=== PATIENT | male | born 1995 | race Caucasian/White ===

== ENCOUNTER 2022-03-04 23:38 | Emergency (ER) | payer BC, SELFPAY ==
--- NOTE | ~2022-03-04 | XR_ITS ---
EXAMINATION: XR chest 2V DATE: 03/05/2022 00:02 INDICATION: Chest pain. TECHNIQUE: Frontal and lateral views of the chest were obtained. COMPARISON: None. FINDINGS: The chest demonstrates clear lungs without pneumonia, pleural effusion, or pneumothorax. Th e heart size is normal. IMPRESSION: 1. No acute cardiopulmonary disease. Reviewed, dictated and finalized at location A.
--- NOTE | 2022-03-04 23:40 | ECG_ITS ---
Measurements Intervals [place] Rate: 101 P: 80 LA: 148 QRS: 61 QRSD: 85 T: 23 QT: 313 QTc: 407 Interpretive Statements SINUS TACHYCARDIA POSSIBLE LEFT ATRIAL ENLARGEMENT BORDERLINE ST-T WAVE ABNORMALITY- INFERIOR LEADS BORDERLINE ECG NO PREVIOUS ECG AVAILABLE FOR COMPARISON Electronically Signed On 03-05-2022 6:41:17 CDT by Hunter Pritchard D.O.
[2022-03-04 23:41] VITALS: BP 126/82; PULSE 97; RESP 16; TEMP 36.6; O2SAT 98
[2022-03-04 23:56] LABS: Basophils Absolute Auto 0.1 K/mm3 (0.0-0.1); Basophils Percent Auto 0.7 % (0.2-1.2); Eosinophils Absolute Auto 0.2 K/mm3 (0-0.3); Eosinophils Percent Auto 1.7 % (0-4.4); Immature Granulocyte Absolute 0.02 K/mm3 (0.00-0.031); Immature Granulocyte Percent A 0.2 % (0-0.5); Lymphocytes Absolute Auto 1.46 K/mm3 (0.9-3.2); Lymphocytes Percent Auto 16.1 % (18.3-44.2); Mean Corpuscular Hemoglobin 28.8 pg (26-34); Mean Corpuscular Volume 84.7 fl (80-100); Monocytes Absolute Auto 0.6 K/mm3 (0.1-0.6); Monocytes Percent Auto 6.5 % (2.6-8.5); Neutrophils Absolute Auto 6.8 K/mm3 (1.3-6.7); Neutrophils Percent Auto 74.8 % (45.5-73.1); Platelet Count Result 268 k/mm3 (150-375); Red Blood Count 5.55 M/mm3 (4.6-6.20); Red Cell Distribution Width 12.2 % (11.5-14.5); White Blood Count 9.1 K/mm3 (4.5-10.0)
[2022-03-05 00:08] LABS: Alanine Aminotransferase 23 U/L (6-50); Albumin Level 4.9 g/dL (3.5-5.1); Alkaline Phosphatase 50 U/L (38-126); Anion Gap 13 mmol/L (8-16); Aspartate Amino Transferase 26 U/L (17-59); Bilirubin,Total 0.6 mg/dL (0.2-1.3); Blood Urea Nitrogen 13 mg/dL (9-20); Calcium 9.4 mg/dL (8.4-10.2); Carbon Dioxide 25 mmol/L (22-30); Chloride 103 mmol/L (98-107); Estimated Glomerular Filt Rate > 60; Glucose 103 mg/dL (65-110); INR 1.1; Lipase 61 U/L (23-300); Partial Thromboplastin Time 27.6 SECONDS (22.3-36.8); Prothrombin Time 13.6 Seconds (11.1-14.7); Sodium 141 mmol/L (137-145)
[2022-03-05 00:19] LABS: Troponin I < 0.012 ng/mL (0.000-0.034)
--- NOTE | 2022-03-05 01:59 | ED.GENADULT ---
[facility] - General Adult General Chief complaint: Chest Pain Stated complaint: chest pain Time Seen by Provider: 03/05/22 00:38 History of Present Illness HPI narrative: Patient is a 26-year-old male who presents ER with chest pain. Began after he smokes marijuana. Tightness in his upper chest with tingling down his left arm. Reports family history of strokes and is concerned him. No expressive aphasia or slurred speech. No other focal deficit. Symptoms improved at this time. Reports in normal health otherwise. Review of Systems Review of Systems: All systems reviewed & are unremarkable except as noted in HPI and below Constitutional: Constitutional: Denies chills, Denies fatigue and Denies fever(s) ENT: Denies nasal congestion and Denies sore throat Cardiovascular: Cardiovascular: Reports chest pain, Denies rapid heart rate and Reports radiating jaw, neck or arm pain Respiratory: Respiratory: Denies cough and Denies dyspnea Gastrointestinal: Gastrointestinal: Denies abdominal pain, Denies nausea and Denies vomiting Neurologic: Denies syncope, Denies headache(s), Denies focal weakness and Reports numbness Psychiatric: Psychiatric: Reports anxiety and Denies depression PMF Past Medical History Medical History (Updated 03/05/22 @ 02:05 by Devon Gaines MD) Healthy adult male Surgical History Surgical History (Updated 03/05/22 @ 02:01 by Devon Gaines MD) No history of previous surgery Social History Social History (Updated 03/05/22 @ 02:02 by Devon Gaines MD) Substance use type: marijuana Exam Narrative: GENERAL: Well-appearing, well-nourished, and in no acute distress. HEAD: Normocephalic, atraumatic. EYES: PERRL and EOMI. ENT: Mucous membranes moist. CHEST: Clear to auscultation. No respiratory distress. HEART: Regular rate and rhythm. Normal peripheral pulses. ABDOMEN: Soft, nontender, nondistended. EXTREMITIES: Normal range of motion. No edema. SKIN: Warm, dry, no rash. NEURO: No focal deficits. No upper or lower extremity drift. Cranial nerves II through XII intact. No sensory deficit in the upper extremities. Alert and oriented x3. PSYCH: Normal mood and affect. Course Vital Signs Vital signs: Vital Signs Temperature 97.8 F 03/04/22 23:41 Pulse Rate 97 03/04/22 23:41 Respiratory Rate 16 03/04/22 23:41 Blood Pressure 126/82 03/04/22 23:41 Pulse Oximetry 98 03/04/22 23:41 Oxygen Delivery Room Air 03/04/22 23:41 Temperature 97.8 F 03/04/22 23:41 Pulse Rate 97 03/04/22 23:41 Respiratory Rate 16 03/04/22 23:41 Blood Pressure 126/82 03/04/22 23:41 Pulse Oximetry 98 03/04/22 23:41 Oxygen Delivery Room Air 03/05/22 01:51 Medical Decision Making Vital Signs Vital Signs: Vital Signs Temperature 97.8 F 03/04/22 23:41 Pulse Rate 97 03/04/22 23:41 Respiratory Rate 16 03/04/22 23:41 Blood Pressure 126/82 03/04/22 23:41 Pulse Oximetry 98 03/04/22 23:41 Oxygen Delivery Room Air 03/04/22 23:41 Temperature 97.8 F 03/04/22 23:41 Pulse Rate 97 03/04/22 23:41 Respiratory Rate 16 03/04/22 23:41 Blood Pressure 126/82 03/04/22 23:41 Pulse Oximetry 98 03/04/22 23:41 Oxygen Delivery Room Air 03/05/22 01:51 Lab Data Result diagrams: 03/04/22 23:50 03/04/22 23:50 Labs: Lab Results 03/04/22 03/04/22 03/04/22 Range/Units 23:50 23:50 23:50 WBC 9.1 (4.5-10.0) K/mm3 RBC 5.55 (4.6-6.20) M/mm3 Hgb 16.0 (14.0-18.0) g/dL Hct 47.0 (42.0-52.0) % MCV 84.7 (80-100) fl MCH 28.8 (26-34) pg MCHC 34.0 (32-36) g/dl RDW 12.2 (11.5-14.5) % Plt Count 268 (150-375) k/mm3 MPV 8.0 (7.4-10.4) fl Immature Gran % (Auto) 0.2 (0-0.5) % Neut % (Auto) 74.8 H (45.5-73.1) % Lymph % (Auto) 16.1 L (18.3-44.2) % [place] % (Auto) 6.5 (2.6-8.5) % Eos % (Auto) 1.7 (0-4.4) % Baso % (Auto) 0.7 (0.2-1.2) % Lymph
[2022-03-05 02:12] VITALS: BP 131/94; PULSE 81; RESP 16; O2SAT 94
== END 2022-03-05 02:13 | disposition home or self-care (01) ==
PROVIDERS: Emergency Provider Emergency Medicine
DX: R07.89 Other chest pain (principal); R00.0 Tachycardia, unspecified; R94.31 Abnormal electrocardiogram [ECG] [EKG]
CPT/HCPCS: 36415; 71046; 80053; 83690; 84484; 85025; 85610; 85730; 93005; 99284